=== PATIENT | female | born 2000 | race Caucasian/White ===

== ENCOUNTER 2024-11-19 11:29 | Emergency (ER) | payer OTHER, SELFPAY ==
[2024-11-19 11:54] VITALS: BP 138/90
--- NOTE | 2024-11-19 14:01 | ED.SKININJ ---
HPI-Injury
General
Chief Complaint: Bite
Time Seen by Provider: 11/19/24 12:41
History of Present Illness-Injury
Initial Injury comments:
24-year-old female presenting to the emergency department for dog bite. 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 The dog became scared and bit her hand. The dog bit her left hand, soft multiple bites and a
laceration. Does have the dogs vaccines are up-to-date. Patient's vaccines are up-to-date including tetanus. Patient notes pain, denies numbness. Denies additional injuries. Denies additional acute medical complaints
Phy Exam
Physical Exam
Physical Exam:
General: Well-appearing, no clinical signs of dehydration, nontoxic and in no acute distress
HEENT: protecting airway
Neck: appears supple
CV: Normal heart rate, regular rhythm
Resp: No accessory muscle use, no increased work of breathing
Abd: no distension
Extremities: Multiple puncture wounds to the left hand with laceration at the third metacarpal region, subcutaneous. Laceration additionally in between the third and fourth digits, superficial. Skin avulsion to the distal third digit. Range of
motion grossly intact. Sensation intact. Mild swelling at the third MCP joint
Neuro: alert, no focal neurologic deficit
: deferred
Rectal: deferred
Psych: Normal affect
Skin: Intact
Course
Orders/Labs/Results
Orders:
Orders
11/19/24 12:29
Hand, Left 3 View [CR Hand - Left Min 3 Views] Urgent
Comment:
Reason For Exam: LEFT HAND DOG BITE
11/19/24 13:57
Amoxicillin 875 mg/Clav 125 mg [Augmentin 875 mg/125 mg] 1 tablet PO NOW STA
Vital Signs
Initial and Last Documented VS:
Initial Vital Signs
Temp Pulse Resp BP Pulse Ox
98 F 83 16 138/90 100
11/19/24 11:54 11/19/24 11:54 11/19/24 11:54 11/19/24 11:54 11/19/24 11:54
Last Documented Vital Signs
Temp Pulse Resp BP Pulse Ox
98 F 83 16 138/90 100
11/19/24 11:54 11/19/24 11:54 11/19/24 11:54 11/19/24 11:54 11/19/24 11:54
Procedures
Laceration Closure
Left Hand:
Status of Wound: clean
Size of Wound in cm: 3
Preparation: cleaned with saline
Anesthesia: 1% Lidocaine
Type of Closure: single layer closure
Skin Closure Material: 4-0 prolene
Number of sutures: 3
MDM/Problems Addressed
MDM/Problems Addressed:
24-year-old female presenting with left hand dog bite. Vital signs normal.
On exam, patient is resting comfortably, no acute distress. Patient with multiple puncture wounds to the hand, laceration to the metacarpal region. Majority of puncture wounds are superficial except for laceration. Will loosely approximate.
Otherwise no significant swelling to the hand, no neurovascular compromise, no infectious findings. No significant contamination. Hand was cleaned and irrigated. Wounds were dressed. Laceration repaired. Please see procedure note. Will start
patient on Augmentin. Return precautions discussed to patient and mother at bedside who verbalized understanding
*Critical Care Note
Total Time (30-74mins, 75-104mins- exclusive of procedures): Not Applicable
ED Attending Note
-
Portions of this chart may have been created with voice recognition software.� Occasional wrong word or��sound alike� substitutions may have occurred due to the inherent limitations of voice recognition software.
Discharge Plan
Departure
Referrals:
Vera Draper MD [Family Provider] -
Interventions
Interventions:
*Risk Screen - Suicide Last Done: 11/19/24 11:56
*General Assessment Last Done: 11/19/24 12:59
*Neglect/Abuse Screening Last Done: 11/19/24 11:56
*ED COVID-19 Vaccine History Last Done: 11/19/24 11:57
ED-Skin Assessment Last Done: 11/19/24 12:59
Discharge Date and Time
Print Language: [id number]
[2024-11-19] MEDS: AUGMENTIN 875 MG/125 MG 1 TABLET PO (14:27)
== END 2024-11-19 14:30 | disposition home or self-care (01) ==
LOC: EMR 11:29
PROVIDERS: EMERGENCY PHYSICIAN Student in an Organized Health Care Education/Training Program; FAMILY PHYSICIAN Family Medicine
DX: S61.452A Open bite of left hand, initial encounter (principal); W54.0XXA Bitten by dog, initial encounter
CPT/HCPCS: 99283; 12002; 73130